=== PATIENT | female | born 1985 | race Caucasian/White ===

== ENCOUNTER 2017-01-12 16:50 | Emergency (ER) | payer OTHER ==
[2017-01-12 16:56] VITALS: BP 115/70; PULSE 68; TEMP 98.2; BMI 39.4
[2017-01-12] MEDS ORDERED: SODIUM CHLORIDE 1,000 ML IV STA (17:26)
[2017-01-12] MEDS ORDERED: ONDANSETRON 4 MG/2 ML VIAL IVPB ONE (17:26)
--- NOTE | 2017-01-12 17:26 | PDOC ---
History of Present Illness - History of Present Illness Initial Comments: 01/12/17 17:58 Patient is a 31 year old female with significant medical hx of chronic back pain and anxiety/depression who is presenting to the ED with sharp, intermittent LLQ for six days. The patient had onset of her pain six days ago after an episode of vomiting. Since then, shes had sharp pain to her left abdomen that worsens with exertion. The patient states that she notices her pain when shes working, while shes standing and lifting. She denies any alleviating factors. The patient denies nausea, diarrhea, fever, chills, dysuria , frequency, lower back pain, or any changes in urination. 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 LNMP: 01/11/17 <Debby Neely - Last Filed: 01/12/17 17:58> <Teresa Wright - Last Filed: 01/12/17 19:37> - General Chief Complaint: Pain, Acute Stated Complaint: ABD PAIN/NAUSEA Time Seen by Provider: 01/12/17 17:18 Past History <Debby Neely - Last Filed: 01/12/17 17:58> - Past Medical History Psychiatric Problems: Yes (depression, anxiety) - Family Disease History Family Disease History: Diabetes: Mother, Heart Disease: Mother, Respiratory: Mother - Reproductive History (#): 0 Para: 0 Cervical CA: No Dysfunctional Uterine Bleeding: No Ectopic : No Endometrial CA: No Polycystic Ovaries: No Therapeutic (s) & number: No Tubal Ligation: No Spontaneous : 0 - Psycho/Social/Smoking Cessation Hx Anxiety: Yes Suicidal Ideation: No Smoking Status: No Smoking History: Never smoked Number of Cigarettes Smoked Daily: 0 Hx Alcohol Use: No Drug/Substance Use Hx: No Substance Use Type: None <Teresa Wright - Last Filed: 01/12/17 19:37> - Past Medical History Allergies/Adverse Reactions: Allergies Allergy/AdvReac Type Severity Reaction Status Date / Time No Known Allergies Allergy Verified 01/12/17 16:54 Home Medications: Ambulatory Orders Gabapentin 300 mg PO PRN PRN 01/12/17 Review of Systems - Review of Systems Comments:: 01/12/17 18:03 CONSTITUTIONAL: Absent: fever, chills, diaphoresis, generalized weakness, malaise, loss of appetite HEENT: Absent: rhinorrhea, nasal congestion, throat pain, throat swelling, difficulty swallowing, mouth swelling, ear pain, eye pain, visual changes CARDIOVASCULAR: Absent: chest pain, syncope, palpitations, irregular heart rate, lightheadedness , peripheral edema RESPIRATORY: Absent: cough, shortness of breath, dyspnea with exertion, orthopnea, wheezing, stridor, hemoptysis GASTROINTESTINAL: Present: vomiting, LLQ pain Absent: abdominal distension, nausea, diarrhea, constipation, melena, hematochezia GENITOURINARY: Absent: dysuria, frequency, urgency, hesitancy, hematuria, flank pain, genital pain MUSCULOSKELETAL: Absent: myalgia, arthralgia, joint swelling SKIN: Absent: rash, itching, pallor HEMATOLOGIC/IMMUNOLOGIC: Absent: easy bleeding, easy bruising, lymphadenopathy, frequent infections ENDOCRINE: Absent: unexplained weight gain, unexplained weight loss, heat intolerance, cold intolerance NEUROLOGIC: Absent: headache, focal weakness or paresthesia, dizziness, unsteady gait, seizure, mental status changes, bladder or bowel incontinence. PSYCHIATRIC: Absent: anxiety, depression, suicidal or homicidal ideation, hallucinations <Debby Neely - Last Filed: 01/12/17 17:58> *Physical Exam - Vital Signs Last Vital Signs Temp Pulse Resp BP Pulse Ox 98.2 F 68 16 115/70 99 01/12/17 16:51 01/12/17 16:51 01/12/17 16:51 01/12/17 16:51 01/12/17 16:51 - Physical Exam Comments: 01/12/17 18:04 GENERAL: Well developed, well nourished. Awake and alert. No acute distress. HEENT: Normocephalic, atraumatic. PERRLA, EOMI. No conjunctival pallor. Sclera are non- icteric. Moist mucous membranes. Oropharynx is clear. NECK: Supple. Full ROM. No JVD. Carotid pulses 2+ and symmetric, without bruits. No thyromegaly. No lymphadenopathy. CARDIOVASCULAR: Regular rate and rhythm. No murmurs, rubs, or gallops. Distal pulses are 2+ and symmetric. PULMONARY: No evidence of respiratory distress. Lungs clear to auscultation bilaterally. No wheezing, rales or rhonchi. ABDOMINAL: Soft. Point tenderness to LLQ. Non-distended. No rebound or guarding. No organomegaly. Normoactive bowel sounds. MUSCULOSKELETAL: Normal range of motion at all joints. No bony deformities or tenderness. No CVA tenderness. EXTREMITIES: No cyanosis. No clubbing. No edema. No calf tenderness. SKIN: Warm and dry. Normal capillary refill. No rashes. No jaundice. NEUROLOGICAL: Alert, awake, appropriate. Cranial nerves 2-12 intact. Normal speech. Gait is normal without ataxia. PSYCHIATRIC: Cooperative. Good eye contact. Appropriate mood and affect. <Debby Neely - Last Filed: 01/12/17 17:58> - Vital Signs Last Vital Signs Temp Pulse Resp BP Pulse Ox 98.2 F 68 16 115/70 99 01/12/17 16:51 01/12/17 16:51 01/12/17 16:51 01/12/17 16:51 01/12/17 16:51 <Teresa Wright - Last Filed: 01/12/17 19:37> ED Treatment Course - LABORATORY CBC & Chemistry Diagram: 01/12/17 18:03 01/12/17 18:03 <Teresa Wright - Last Filed: 01/12/17 19:37> *DC/Admit/Observation/Transfer - Attestations Scribe Attestion: 01/12/17 18:05 Documentation prepared by Debby Neely, acting as medical technologist prn for Teresa Wright MD. <Debby Neely - Last Filed: 01/12/17 17:58> <Teresa Wright - Last Filed: 01/12/17 19:37> Diagnosis at time of Disposition: Abdominal pain Qualifiers: Abdominal location: left lower quadrant Qualified Code(s): R10.32 - Left lower quadrant pain - Discharge Dispostion Disposition: HOME Condition at time of disposition: Stable - Referrals Referrals: Sherif Zepeda MD [Primary Care Provider] - - Patient Instructions Printed Discharge Instructions: DI for Abdominal Pain-Adult Additional Instructions: please take tylenol or motrin for discomfort return if you develop any fever,vomiting or worsening symptoms
[2017-01-12] MEDS ORDERED: ONDANSETRON 4 MG/2 ML VIAL ONE (17:50)
[2017-01-12 18:13] LABS: BASOPHIL 1.7 % (0-2.0); EOSINOPHIL 1.9 % (0-4.5); MCH 29.2 pg (25.7-33.7); MEAN PLT VOLUME 8.4 fl (7.5-11.1); WHITE BLOOD COUNT 4.1 K/mm3 (4.0-10.0)
[2017-01-12 18:14] LABS: URINE APPEARANCE CLEAR; URINE BILIRUBIN NEGATIVE (NEGATIVE); URINE COLOR LTYELLOW; URINE GLUCOSE (UA) NEGATIVE (NEGATIVE); URINE KETONE TRACE (NEGATIVE); URINE LEUK ESTERASE NEGATIVE (NEGATIVE); URINE NITRITE NEGATIVE (NEGATIVE); URINE PROTEIN NEGATIVE (NEGATIVE); URINE UROBILINOGEN NEGATIVE E.U./dl (0.2-1.0)
[2017-01-12 18:15] LABS: URINE BLOOD 1+ (NEGATIVE)
[2017-01-12 18:22] LABS: URINE MUCUS RARE; URINE RBC 7 /hpf (0-3); URINE WBC 2 /hpf (3-5)
[2017-01-12 18:35] LABS: ALBUMIN 3.9 g/dl (3.4-5.0); ALK PHOS 77 U/L (45-117); ANION GAP 7 (8-16); BILIRUBIN,TOTAL 0.5 mg/dL (0.2-1.0); CALCIUM 9.1 mg/dL (8.5-10.1); CO2 28 mmol/L (21-32); CREATININE 0.8 mg/dL (0.55-1.02); GLUCOSE,RANDOM 72 mg/dL (74-106); SGOT/AST 11 U/L (15-37); SGPT/ALT 15 U/L (12-78); TOT PROT 7.3 g/dl (6.4-8.2)
[2017-01-12 19:30] LABS: PLATELET COUNT 331 K/MM3 (134-434); PLATELET ESTIMATE ADEQUATE (NORMAL)
== END 2017-01-12 19:42 | disposition home or self-care (01) ==
LOC: JER 16:50
PROC: 3E033GC Introduction of Other Therapeutic Substance into Peripheral Vein, Percutaneous Approach (ICD-10-PCS; principal; 2017-01-12)
DX: R10.32 Left lower quadrant pain (principal); F41.8 Other specified anxiety disorders
CPT/HCPCS: 36415; 80053; 81003; 81015; 83690; 84703; 85025; 99283-25

== ENCOUNTER 2019-12-24 15:37 | Emergency (ER) | payer OTHER ==
--- NOTE | 2019-12-24 15:49 | PDOC ---
Rapid Medical Evaluation Chief Complaint: Cold Symptoms Time Seen by Provider: 12/24/19 15:47 Medical Evaluation: Allergies Allergy/AdvReac Type Severity Reaction Status Date / Time No Known Allergies Allergy Verified 01/12/17 16:54 12/24/19 15:47 " I think i got the flu." patient symptoms (cough, chest discomfort, throat pain , )since 12/17/2019 denies fever PE: patient alert ox3 A: viral syndrome P; chest xray Discharge Disposition - Diagnosis Viral syndrome - Referrals - Patient Instructions - Post Discharge Activity
[2019-12-24 15:50] VITALS: BP 157/79; PULSE 91; TEMP 98.4; BMI 43.0
[2019-12-24] MEDS ORDERED: KETOROLAC TROMETHAMINE 30 MG/1 ML VIAL IM ONE (16:36)
[2019-12-24] MEDS ORDERED: ALBUTEROL SO4 2.5/IPRATROPIUM 0.5 INH SOL 3 ML VIAL.NEB. NEB ONE ×2 (16:36→16:39)
[2019-12-24] MEDS ORDERED: KETOROLAC TROMETHAMINE 30 MG/1 ML VIAL ONE (16:39)
--- NOTE | 2019-12-24 16:48 | PDOC ---
History of Present Illness - General Chief Complaint: Cold Symptoms Stated Complaint: COLD SYMPTOMS Time Seen by Provider: 12/24/19 15:47 History Source: Patient Exam Limitations: No Limitations - History of Present Illness Initial Comments: 12/24/19 16:45 34-year-old female with history of fibromyalgia and bronchitis presents complaining of dry cough, body aches, sore throat, subjective fever and chills x8 days. Recent flight from [place] on December 18, 2019, denies sick contacts, chest pain, shortness of breath, abdominal pain, nausea, vomiting, diarrhea, headache, rash or any other complaints. Has been taking TheraFlu last dose last night. ROS: GENERAL/CONSTITUTIONAL: Subjective fever, chills, denies weakness, dizziness HEAD, EYES, EARS, NOSE AND THROAT: Sore throat, no changes in vision, No ear pain or discharge CARDIOVASCULAR: No chest pain RESPIRATORY: Cough, no shortness of breath GASTROINTESTINAL: No pain, nausea, vomiting, diarrhea or constipation GENITOURINARY: No dysuria MUSCULOSKELETAL: No neck or back pain SKIN: No rash NEUROLOGIC: No headache, vertigo, loss of consciousness, or loss of sensation PE: GENERAL: well-appearing, NAD HEAD: NCAT EYES: Pupils equal, round and reactive to light, sclera anicteric, conjunctiva clear ENT: Normal bilateral ear canals, normal TMs, pharynx: no erythema, no exudate, uvula midline NECK: supple, no lymphadenopathy CHEST: nontender RESP: clear, no w/r/r CARDIO: rrr, no m/g/r ABD: +BS, soft, nontender, non distended BACK: no midline spinal ttp, no CVAT EXTREMITIES: Normal range of motion, no edema NEUROLOGICAL: Normal speech, normal gait SKIN: Warm, Dry Is this a multiple visit Asthma Patient?: No Past History - Past Medical History Allergies/Adverse Reactions: Allergies Allergy/AdvReac Type Severity Reaction Status Date / Time No Known Allergies Allergy Verified 12/24/19 15:50 Home Medications: Ambulatory Orders Gabapentin 300 mg PO PRN PRN 01/12/17 COPD: No Psychiatric Problems: Yes (depression, anxiety) - Reproductive History (#): 0 Para: 0 Cervical CA: No Dysfunctional Uterine Bleeding: No Ectopic : No Endometrial CA: No Polycystic Ovaries: No Therapeutic (s) & number: No Tubal Ligation: No Spontaneous : 0 - Psycho Social/Smoking Cessation Hx Smoking Status: No Smoking History: Never smoked Have you smoked in the past 12 months: No Number of Cigarettes Smoked Daily: 0 Information on smoking cessation initiated: No Hx Alcohol Use: No Drug/Substance Use Hx: No Substance Use Type: None *Physical Exam - Vital Signs Last Vital Signs Temp Pulse Resp BP Pulse Ox 98.4 F 91 H 19 157/79 97 12/24/19 15:48 12/24/19 15:48 12/24/19 15:48 12/24/19 15:48 12/24/19 15:48 ED Treatment Course - Medications Given in the ED: ED Medications Discontinued Medications Generic Name Dose Route Start Last Admin Trade Name Freq PRN Reason Stop Dose Admin Albuterol/Ipratropium 1 amp 12/24/19 16:36 12/24/19 16:41 Duoneb - NEB 12/24/19 16:37 1 amp ONCE ONE Administration Ketorolac Tromethamine 30 mg 12/24/19 16:36 12/24/19 16:42 Toradol Injection - IM 12/24/19 16:37 30 mg ONCE ONE Administration Medical Decision Making - Medical Decision Making 12/24/19 16:48 34-year-old female with history of fibromyalgia and bronchitis presents with viral-like symptoms x8 days. Chest x-ray -negative Toradol 30 mg IM 1 DuoNeb Reassess 12/24/19 17:06 Feels better after DuoNeb stable for discharge Note for work given Discharge - Discharge Information Problems reviewed: Yes Clinical Impression/Diagnosis: Viral syndrome Condition: Stable Disposition: HOME - Admission No - Follow up/Referral - Patient Discharge Instructions Additional Instructions: Take ibuprofen 600 mg every 6 hours as needed for body aches Rest, remain hydrated Return to ED if symptoms worsen - Post Discharge Activity Work/Back to School Note: Back to Work
== END 2019-12-24 17:11 | disposition home or self-care (01) ==
LOC: JERFT 15:37
PROC: 3E0F7GC Introduction of Other Therapeutic Substance into Respiratory Tract, Via Natural or Artificial Opening (ICD-10-PCS; principal; 2019-12-24)
PROC: 3E0233Z Introduction of Anti-inflammatory into Muscle, Percutaneous Approach (ICD-10-PCS; 2019-12-24)
DX: B34.9 Viral infection, unspecified (principal); M79.7 Fibromyalgia
CPT/HCPCS: 71046-TC-FY; 99281-25

== ENCOUNTER 2021-11-15 09:36 | Emergency (ER) | payer OTHER ==
[2021-11-15 09:50] VITALS: BP 98/61; PULSE 88; TEMP 98; BMI 30.2
[2021-11-16 13:06] LABS: SARS-CoV-2 NAA Not Detected (Not Detected)
== END 2021-11-15 11:37 | disposition home or self-care (01) ==
LOC: JER 09:36
DX: O98.512 Other viral diseases complicating pregnancy, second trimester (principal); Z3A.16 16 weeks gestation of pregnancy
CPT/HCPCS: 99283-25; C9803; U0003; U0005

== ENCOUNTER 2022-12-24 09:31 | Emergency (ER) | payer OTHER ==
[2022-12-24 10:29] VITALS: BP 110/73; PULSE 61; RESP 18; TEMP 97.9; BMI 25.7
== END 2022-12-24 12:51 | disposition home or self-care (01) ==
LOC: JER 09:31
DX: J06.9 Acute upper respiratory infection, unspecified (principal)
CPT/HCPCS: 0241U-QW; 71046-TC-FY; 99284-25